=== PATIENT | female | born 1980 | race Caucasian/White ===

== ENCOUNTER 2018-06-01 03:36 | Emergency (ER) | payer MEDICAID ==
[2018-06-01] MEDS: KETOROLAC 60 MG INJ IM (05:09)
== END 2018-06-01 05:23 | disposition home or self-care (01) ==
LOC: FTE 03:36
DX: S29.002A Unspecified injury of muscle and tendon of back wall of thorax, initial encounter (principal); S69.90XA Unspecified injury of unspecified wrist, hand and finger(s), initial encounter; F17.210 Nicotine dependence, cigarettes, uncomplicated; X50.3XXA Overexertion from repetitive movements, initial encounter; Y92.009 Unspecified place in unspecified non-institutional (private) residence as the place of occurrence of the external cause
CPT/HCPCS: 96372; 99284-25

== ENCOUNTER 2018-06-03 21:42 | Emergency (ER) | payer SELFPAY, MEDICAID | END 2018-06-03 23:07 | disposition left against medical advice (07) | LOC: FTE 21:42 | DX: Z53.21 Procedure and treatment not carried out due to patient leaving prior to being seen by health care provider (principal) ==

== ENCOUNTER 2018-06-04 20:42 | Emergency (ER) | payer MEDICAID ==
[2018-06-04] MEDS: KETOROLAC 60 MG INJ IM (23:57)
[2018-06-05] LABS: URINE BLOOD (Dip) POC Trace-lysed (NEGATIVE); URINE GLUCOSE (Dip) POC Negative (NEGATIVE); URINE KETONES (Dip) POC Trace (NEGATIVE); URINE LEUKOCYTE EST (Dip) POC 1+ (NEGATIVE); URINE NITRITE (Dip) POC Negative (NEGATIVE); URINE TOTAL PROTEIN POC 1+ (NEGATIVE)
[2018-06-05 08:26] LABS: URINE BLOOD (Dip) POC Trace-lysed (NEGATIVE); URINE GLUCOSE (Dip) POC Negative (NEGATIVE); URINE KETONES (Dip) POC Trace (NEGATIVE); URINE LEUKOCYTE EST (Dip) POC 1+ (NEGATIVE); URINE NITRITE (Dip) POC Negative (NEGATIVE); URINE TOTAL PROTEIN POC 1+ (NEGATIVE)
== END 2018-06-05 01:53 | disposition home or self-care (01) ==
LOC: FTE 06-05 01:53
DX: S16.1XXA Strain of muscle, fascia and tendon at neck level, initial encounter (principal); S39.012A Strain of muscle, fascia and tendon of lower back, initial encounter; N30.00 Acute cystitis without hematuria; M54.12 Radiculopathy, cervical region; X50.3XXA Overexertion from repetitive movements, initial encounter; Y92.89 Other specified places as the place of occurrence of the external cause
CPT/HCPCS: 72125; 72128; 81003; 81025; 96372; 99285-25